=== PATIENT | female | born 1995 | race Caucasian/White ===

== ENCOUNTER 2024-12-31 08:26 | Emergency (ER) | payer OTHER, SELFPAY ==
--- OUTSIDE RECORDS SUMMARY | 2024-12-31 08:30 | XMS_ITS | Clinical Summary ---
Author Organization [facility] Address [address] [place] [id number] Care Team Providers Care Barrer And Tacker Name Role Phone Yves Antoine MD Primary Care Provider [phone] Allergies Active Allergy Reactions Criticality Noted Date Comments Penicillins Hives High 07/31/2022 Medications HYDROcodone-miriam taminophen (NORCO) 5-325 mg tablet Take 1-2 Tablets by mouth every 6 hours as needed. 07/31/2022 Active Norgestimate-Et hinyl estradiol 0.18/0.215/0.25 mg-25 mcg tablet Take 1 Tablet by mouth daily. Active losartan (COZAAR) 50 mg tablet Take 50 mg by mouth daily. 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 Gender Identity Not on file Sexual Orientation Not on file Last Filed Vital Signs Vital Sign Reading Time Taken Comments Blood Pressure 159/91 04/22/2023 8:18 AM APARTMENT MAINTENANCE WORKER Pulse 74 04/22/2023 8:18 AM APARTMENT MAINTENANCE WORKER Temperature 36.8 C (98.2 F) 04/22/2023 8:18 AM APARTMENT MAINTENANCE WORKER Respiratory Rate 16 04/22/2023 8:18 AM APARTMENT MAINTENANCE WORKER Oxygen Saturation 100% 04/22/2023 8:18 AM APARTMENT MAINTENANCE WORKER Inhaled Oxygen Concentration - - Weight 72.6 kg (160 lb) 04/22/2023 8:18 AM APARTMENT MAINTENANCE WORKER Height 165.1 cm (5' 5) 04/22/2023 8:18 AM APARTMENT MAINTENANCE WORKER Body Mass Index 26.63 04/22/2023 8:18 AM APARTMENT MAINTENANCE WORKER Plan of Treatment Health Maintenance Due Date Last Done Comments HEPATITIS B VACCINES (1 of 3 - 19+ 3-dose series) 10/2014 CERVICAL CANCER SCREENING 08/05/2016 HPV/Cotest (21-29) 08/05/2016 PAP SMEAR 08/05/2016 HPV VACCINES (1 - 3-dose SCDM series) 08/05/2022 INFLUENZA VACCINE (#1) 2024 DTAP/TDAP/TD VACCINES (2 - Td or Tdap) 07/31/2032 Insurance Other Machine AND [employer] Care Teams Barrer And Tacker Relationship Specialty Start Date End Date Yves Antoine MD [address] [place] [address] PCP - General 04/22/23
--- OUTSIDE RECORDS SUMMARY | 2024-12-31 08:34 | XMS_ITS | Clinical Summary ---
Author Organization [facility] Address [address] [place] [id number] Care Team Providers Care Flavor Room Worker Name Role Phone Rogerio Garcia MD Primary Care Provider Allergies Active Allergy Reactions Criticality Noted Date Comments Penicillins Hives 07/31/2022 Medications Norgestimate-Et hinyl Estradiol (DBM-GH-QGJDYML C) 0.18/0.215/0.25 MG-25 MCG tablet Take 1 tablet by mouth daily. Active losartan (COZAAR) 50 MG tablet Take 1 tablet (50 mg total) by mouth daily. Active predniSONE (DELTASONE) 10 mg tablet Take 1 tablet (10 mg total) by mouth daily. Active azithromycin (ZITHROMAX) 250 MG tablet Take 1 tablet (250 mg total) by mouth daily. Take 2 tablets by mouth on day one then 1 daily for four days. Active HYDROcodone-miriam taminophen (NORCO) 5-325 MG tabletIndicatio ns:Acute Pain < 7 Day Supply Take 1-2 tablets by mouth every 6 (six) hours as needed. 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 Gender Identity Not on file Sexual Orientation Not on file Last Filed Vital Signs Vital Sign Reading Time Taken Comments Blood Pressure 171/94 07/31/2022 2:00 PM CDT Pulse 74 07/31/2022 1:17 PM CDT Temperature 36.9 C (98.5 F) 07/31/2022 1:17 PM CDT Respiratory Rate 16 07/31/2022 1:17 PM CDT Oxygen Saturation 97% 07/31/2022 2:00 PM CDT Inhaled Oxygen Concentration - - Weight 68 kg (150 lb) 07/31/2022 1:17 PM CDT Height 162.6 cm (5' 4) 07/31/2022 1:17 PM CDT Body Mass Index 25.75 07/31/2022 1:17 PM CDT Plan of Treatment Health Maintenance Due Date Last Done Comments Cervical Cancer Screening Pap Smear (Age 21 to 29) Every 3 Years 1995 Cervical Cancer Screening 1995 Hepatitis B Vaccines (4 of 4 - 4-dose series) 02/06/1996 1995, 1995, 1995 Annual Physical 08/05/1998 Hepatitis C 08/05/2013 HPV Vaccines (1 - 3-dose SCDM series) 08/05/2022 COVID-19 Vaccine ( season) 2024 DTaP, Tdap and Td Vaccines (3 - Td or Tdap) 07/31/2032 07/31/2022, 02/14/2022, 11/10/1996, Additional history exists Meningococcal B Vaccine Aged Out No l onger eligible based on patient's age to complete this topic Meningococcal Vaccine Aged Out No sharita maryse eligible based on patient's age to complete this topic Pneumococcal Vaccine: Pediatrics (0 to 5 Years) and At-Risk Patients (6 to 49 Years) Aged Out No longer eligible based on patient's age to complete this topic RSV Immunizations Under 20 Months Aged Out No longer eligible based on patient's age to complete this topic Insurance [employer] Care Teams Flavor Room Worker Relationship Specialty Start Date End Date Rogerio Garcia MD [address] [place] [address] PCP - General FAMILY PRACTICE 07/31/22
[2024-12-31 08:39] VITALS: BP 143/107; PULSE 71; RESP 18; TEMP 36.4; O2SAT 100
[2024-12-31 09:17] LABS: EDSTREPNEGPOS1 Positive (Negative)
--- NOTE | 2024-12-31 09:23 | ED_ITS ---
HPI - URI/Sore Throat General Chief Complaint: Upper Respiratory Infection Stated Complaint: Cold Like Time Seen by Provider: 12/31/24 09:00 Source: patient and RN notes reviewed Mode of arrival: ambulatory Limitations: no limitations History of Present Illness HPI Narrative: 29-year-old female presents Express Care complaining of upper respiratory symptoms for approximately 9 days. Patient said his symptoms started out as congestion, scratchy throat, runny nose, and cough. Patient says the symptoms are rapidly resolving however yesterday she developed a sore throat reports pain with swallowing. Patient denies any fevers, body aches chills, nausea vomiting, diarrhea, chest pain of a difficulty breathing, shortness of breath, or any other symptoms. Patient taking DayQuil and NyQuil to help with symptoms. Patient states she has a history of hypertension. Related Data Home Medications ?Medication ?Instructions ?Recorded ?Confirmed ?Last Taken ?Type losartan 50 mg tablet mg 12/31/24 Unknown History norgestimate 0.18 mg/0.215mg/0.25 tablet 12/31/24 Unk nown History mg-ethinyl estradiol 0.025 mg tablet (Tri-Lo-Katheryn) Allergies Allergy/AdvReac Type Severity Reaction Status Date / Time Penicillins Allergy Mild Hives Verified 12/31/24 08:49 Review of Systems Review of Systems: CONSTITUTIONAL: Denies fever, chills, or sweats. EYES: Denies visual changes, redness, or discharge. ENT: Denies rhinorrhea, congestion, or otalgia. Positive for sore throat. CARDIOVASCULAR: Denies chest pain, palpitations, or edema. RESPIRATORY: Denies cough or dyspnea. GASTROINTESTINAL: Denies abdominal pain, nausea, vomiting, or diarrhea. GENITOURINARY: Denies dysuria or hematuria. SKIN: Denies rash or itching. MUSCULOSKELETAL: Denies back pain, joint pain, or myalgia. NEUROLOGIC: Denies headache, numbness, or weakness. PSYCHIATRIC: Denies anxiety or depression. All other systems reviewed are negative, except as documented in HPI. PMFSH Comments At the time of my signature, I reviewed and agree with the nursing past medical, surgical, social, and family history. There is no relevant family history pertinent to the patient complaint. Exam Narrative: GENERAL: This is a well-nourished, well-developed adult, in no apparent distr ess. They are non ill-appearing, nontoxic appearing. HEAD: normocephalic, atraumatic. EYES: Sclera clear/white. Conjunctiva normal. Vision is grossly intact. Extraocular movements intact EARS: External ears normal, auditory canals clear and without drainage, TMs normal without perforation. Hearing grossly intact. NOSE: External nose normal with no obvious nasal discharge, nasal turbinates wit hout redness, no rhinorrhea. THROAT: Mucous membranes moist, posterior pharynx erythematous. Uvula midline. NECK: Neck supple, non-tender without lymphadenopathy, masses or thyromegaly. CARDIOVASCULAR: Regular rate and rhythm without murmurs, gallops, or rubs. RESPIRATORY: Clear to auscultation. Breath sounds equal bilaterally. No wheezes, rales, or rhonchi. SKIN: warm, Dry, intact with no suspicious lesions or rash, good texture and turgor. NEURO: awake, alert, and oriented to person, place and time. There were no obvious focal neurologic abnormalities. EXTREMITIES: No joint tenderness, effusion, or edema noted. Course Course Emergency Course: Portions of this record may have been created with voice recognition software Level of Care: Express Care Visit Vital Signs Vital signs: Vital Signs Temperature 97.6 F 12/31/24 08:39 Pulse Rate 71 12/31/24 08:39 Respiratory Rate 18 12/31/24 08:39 Blood Pressure 143/107 H 12/31/24 08:39 Pulse Oximetry 100 12/31/24 08:39 Oxygen Delivery Room Air 12/31/24 08:39 Temperature 97.6 F 12/31/24 08:39 Pulse Rate 71 12/31/24 08:39 Respiratory Rate 18 12/31/24 08:39 Blood Pressure 143/107 H 12/31/24 08:39 Pulse Oximetry 100 12/31/24 08:39 Oxygen Delivery Room Air 12/31/24 08:39 Reviewed MDM - URI/Sore Throat MDM Narrative Medical decision making narrative: Rapid strep positive. Patient is upper respiratory symptoms appear to have resolved, exam consistent with strep pharyngitis. Will treat with cefdinir, patient says she has a penicillin allergy reports having hives as a child. Denies any history of anaphylaxis. Patient requesting fluconazole for vaginal yeast infection, she states antibiotics give her vaginal yeast infections. Advised her to only take fluconazole if she develops symptoms. Discussed physic al exam findings. Advised supportive measures and signs/symptoms to go to the ER. Pt is appropriate for outpt treatment and f/u. Differential Diagnosis Differential diagnosis: Likely upper respiratory infection, sinusitis, viral infection and pharyngitis Lab Data Attestation: I reviewed the patient's lab results. Labs: Lab Results 12/31/24 Range/Units 09:13 POC Grp A Strep Screen Positive (Negative) Critical Care Time Critical Care Time Critical Care Time: No Discharge Plan Discharge Clinical Impression: Pharyngitis Qualifiers: Pharyngitis/tonsillitis etiology: streptococcus Qualified Code(s): J02.0 - Streptococcal pharyngitis Patient Disposition: Home Condition: Stable Instructions: Antibiotic Form, Strep Throat (ED) Additional Instructions: You tested positive for strep throat. ?Please take the cefdinir as prescribed until gone. ?You will be contagious for 24 hours after starting the medication. ?After 24 hours on antibiotics throw tooth brush away and start using a new one. Wash your sheets and cup/water bottle that is used daily. Do not share drinks. Take Tylenol or Ibuprofen for pain or fever, if able. ?Rest and stay hydrated. ?Follow up with your PCP in 3 days if symptoms are not improving. ?Go to the ER immediately if you develop worsening symptoms such as shortness of breath, difficulty swallowing. ? Take fluconazole only if you develops symptoms of a yeast infection. Patient Language: Italian Prescriptions: New cefdinir 300 mg capsule 600 mg PO DAILY 10 Days Qty: 20 0RF fluconazole 150 mg tablet 150 mg PO Q72H Qty: 2 0RF Rx Instructions: May repeat dose after 72 hours if symptoms persist. No Action losartan 50 mg tablet norgestimate-ethinyl estradiol [Tri-Lo-Katheryn] 0.18/0.215/0.25 mg-0.025 mg tablet Follow-up/Referrals: PHYSICIAN,CHEMICAL UNIT OPERATOR [Primary Care Provider, Internal Medicine] Time of Disposition: :20
== END 2024-12-31 09:24 | disposition home or self-care (01) ==
DX: J02.0 Streptococcal pharyngitis (principal); I10 Essential (primary) hypertension; Z86.16 Personal history of COVID-19
CPT/HCPCS: 87880; 99203; G0463